=== PATIENT | male | born 1985 | race Caucasian/White ===

== ENCOUNTER → 2021-04-25 08:54 | Outpatient (BNVA) | payer MEDICAID, SELFPAY | PROVIDERS: Family Provider Family Medicine; PCP Physician Assistant; Visit Provider Specialist | DX: G40.909 Epilepsy, unspecified, not intractable, without status epilepticus (principal) | CPT/HCPCS: 99204 ==

== ENCOUNTER → 2021-09-26 08:05 | Outpatient (BNVA) | payer MEDICAID, SELFPAY | PROVIDERS: Family Provider Family Medicine; PCP Physician Assistant; Visit Provider Specialist | DX: G40.909 Epilepsy, unspecified, not intractable, without status epilepticus (principal) | CPT/HCPCS: 99212; 99213 ==

== ENCOUNTER 2023-01-14 14:18 | Inpatient (IN) | payer MEDICARE, MEDICAID, SELFPAY ==
[2023-01-14] VITALS (8 sets, daily range): BP systolic 139–175; BP diastolic 87–113; PULSE 93–111; RESP 16–20; TEMP 36.6–37; O2SAT 93–98; BMI 30.4
--- NOTE | 2023-01-14 15:19 | XRR_ITS ---
PROCEDURE INFORMATION: Exam: XR Chest Exam date and time: 01/14/2023 3:22 PM Age: 37 years old Clinical indication: Other: Vomiting blood; Additional info: Choking episode, vomiting blood TECHNIQUE: Imaging protocol: Radiologic exam of the chest. Views: 1 view. COMPARISON: No relevant prior studies available. FINDINGS: Limitations: Patient is rotated to the right. Lungs: Unremarkable. No consolidation. Pleural spaces: Unremarkable. No pleural effusion. No pneumothorax. Heart/Mediastinum: Unremarkable. No cardiomegaly. Bones/joints: Unremarkable. XR/XR chest 1V portable [id number] IMPRESSION: No acute findings.
--- NOTE | 2023-01-14 15:19 | W.ED.GENADLT ---
Documented by User: GRADY Gordillo 01/15/23 09:42 HPI - General Adult General: Chief complaint: General Medical Stated complaint: vomitting blood after eating Time Seen by Provider: 01/14/23 14:54 Source: family Mode of arrival: ambulatory Limitations: no limitations History of Present Illness: Patient is a 37-year-old male with a history of significant intellectual disability here with his parents for concerns of bloody emesis. According to the mother, patient was eating chicken strips earlier this morning when he gagged/got choked up on a piece and subsequently vomited. Mother states the contents of that episode of emesis was stomach acid/food however shortly after patient began having grossly bloody emesis. She states he has had approximately 7-8 episodes of bloody emesis since then. Patient is nonverbal and is not able to respond or localize to pain. 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 Onset (ago): hour(s) Treatments prior to arrival: none Review of Systems General: Reports: ROS unobtainable due to medical condition (pt is non-verbal) [facility] ED PFSH: Medical History Hypertension Seizure disorder Surgical History No significant past surgical history Social History Smoking and tobacco/nicotine status: never used tobacco/nicotine Caregiver/support person: Yes Household members: family Housing: House Marital status: Single Physical Exam Const: COMMON NORMALS: no acute distress, no limitations, alert and well nourished GENERAL APPEARANCE: cooperative ORIENTATION/CONSCIOUSNESS: Yes awake HENMT: COMMON NORMALS: normocephalic and atraumatic HEAD & SCALP: normal to inspection, normocephalic and atraumatic MOUTH: other (pt will not open mouth for visual inspection ) Eye: GENERAL EYE: appearance normal, both eyes and all related structures Neck/C-Spine: COMMON NORMALS: full ROM GENERAL: Yes normal visual inspection, No anterior neck swelling, No submandibular swelling and Yes other (no subcutaneous emphysema palpated) Chest: COMMONS NORMALS: normal inspection of the chest and normal palpation of entire chest wall Resp: COMMON NORMALS: normal respiratory effort and clear to auscultation bilaterally AUSCULTATION: clear to auscultation bilaterally Cardio: COMMON NORMALS: regular rate and regular rhythm RATE: regular rate RHYTHM: regular rhythm GI: COMMON NORMALS: Normal to inspection, nondistended, normoactive bowel sounds present, Soft to palpation and non-tender AUSCULTATION: Yes normoactive bowel sounds PALPATION: Yes Soft to palpation Neuro: SENSORIUM/ORIENTATION: Yes alert Course Consultations: Consultation #1: Dr. Lu-recommends CT chest/abdomen/pelvis imaging with IV and oral contrast, admit to hospitalist, and he will plan on EGD in the morning (later discussed about hesitation of PO contrast if we are going to do conscious sedation for CT scan and he was agreeable to IV contrast only) Consultation #2: Dr. Zhou-recommends fluids at 50cc/hr, IV Depakote, and will admit Vital Signs: Vital signs: Vital Signs Temperature 97.9 F 01/15/23 08:40 Pulse Rate 100 01/15/23 12:54 Respiratory Rate 18 01/15/23 12:54 Blood Pressure 134/78 01/15/23 12:54 Pulse Oximetry 90 01/15/23 12:54 Oxygen Delivery Me thod Room Air 01/15/23 12:00 Oxygen Flow Rate 2 01/14/23 22:27 MDM - General Adult Medical Decision Making Patient is a 37-year-old male here for complaints of gross hematemesis following an episode of vomiting after choking on food. He has had approximately 7-8 episodes of hematemesis. Spoke to general surgeon Dr. Lu and plan will be for CT scan of his chest/abdomen/pelvis and plan for scope in the morning. We are having to perform conscious sedation to complete this secondary to patient's severe intellectual disabilities. Dr. Meredith aware of patient and has assessed him as well. At time of shift change Dr. Meredith is currently over in CT with the patient as he was given propofol to get imaging completed. I also spoke to hospitalist Dr. Zhou who will admit patient. Please see Dr. Meredith's documentation for conscious sedation procedural note. He will place admit orders. Lab Data 01/15/23 05:09 01/15/23 05:09 Radiology Impressions Chest X-Ray 01/14/23 15:19 IMPRESSION: No acute findings. Chest/Abdomen/Pelvis CT 01/14/23 16:14 IMPRESSION: Fluid-filled mildly distended distal esophagus. Esophagram and possible upper endoscopy should be considered. IMPRESSION: No acute findings. COMMENTS: Consistent with the [employer]'s Incidental Findings Committee white paper (J Am Kentrell Radiol 2018): Any incidental renal lesion less than 1 cm or classified as too small to characterize, or any incidental cystic renal lesion characterized as simple-appearing, is likely benign. No follow-up imaging is recommended for these lesions per consensus recommendations based on imaging criteria. Laboratory Results WBC 19.71 10^3/uL (3.29-11.43) H 01/14/23 15:50 RBC 5.23 10^6/uL (3.85-5.65) 01/14/23 15:50 Hgb 15.20 g/dL (11.27-16.99) 01/14/23 15:50 Hct 47.5 % (37-53) 01/14/23 15:50 MCV 90.8 fl (82-101) 01/14/23 15:50 MCH 29.1 pg (27-33) 01/14/23 15:50 MCHC 32.0 g/dL (30-55) 01/14/23 15:50 RDW 13.4 % (12.1-15.1) 01/14/23 15:50 Plt Count 391 10^3/cmm (157-399) 01/14/23 15:50 MPV 10.1 fL (7.4-10.4) 01/14/23 15:50 Neut % (Auto) 88.0 % 01/14/23 15:50 Lymph % (Auto) 5.8 % 01/14/23 15:50 [place] % (Auto) 4.3 % 01/14/23 15:50 Eos % (Auto) 1.1 % 01/14/23 15:50 Baso % (Auto) 0.4 % 01/14/23 15:50 Neut # (Auto) 17.35 10^3/uL (1.8-7.7) H 01/14/23 15:50 Lymph # (Auto) 1.1 10^3/uL (0.8-4.8) 01/14/23 15:50 [place] # (Auto) 0.8 10^3/uL (0.2-0.9) 01/14/23 15:50 Eos # (Auto) 0.2 10^3/uL (0.0-0.8) 01/14/23 15:50 Baso # (Auto) 0.1 10^3/uL (0.0-0.1) 01/14/23 15:50 Nucleated RBC % (auto) 0 % 01/14/23 15:50 Nucleated RBCs # 0.0 /100WBC 01/14/23 15:50 Sodium 138 mmol/L (136-145) 01/14/23 15:50 Potassium 4.1 mmol/L (3.5-5.1) 01/14/23 15:50 Chloride 100 mmol/L (98-107) 01/14/23 15:50 Carbon Dioxide 29 mmol/L (22-29) 01/14/23 15:50 Anion Gap 13.1 (5-19) 01/14/23 15:50 BUN 17 mg/dL (6-20) 01/14/23 15:50 Creatinine 0.6 mg/dL (0.7-1.2) L 01/14/23 15:50 GFR Calculation 152.4 mL/min (90-130) H 01/14/23 15:50 Glucose 131 mg/dL (65-115) H 01/14/23 15:50 Calculated Osmolality 289 mOsm/kg (285-295) 01/14/23 15:50 Calcium 9.8 mg/dL (8.5-10.5) 01/14/23 15:50 Iron 42 ug/dL (59-158) L 01/14/23 15:50 TIBC 372 mcg/dl 01/14/23 15:50 % Saturation 11.2 % (20-50) L 01/14/23 15:50 Unsat Iron Binding 330 ug/dL (112-347) 01/14/23 15:50 Total Bilirubin 0.2 mg/dL (0.15-1.2) 01/14/23 15:50 AST 16 U/L (0-40) 01/14/23 15:50 ALT 21 U/L (0-41) 01/14/23 15:50 Alkaline Phosphatase 66 U/L (40-130) 01/14/23 15:50 Total Protein 7.7 g/dL (6.6-8.7) 01/14/23 15:50 Albumin 4.4 g/dL (3.5-5.2) 01/14/23 15:50 Globulin 3.3 g/dL (1.3-4.6) 01/14/23 15:50 Vitamin B12 635 pg/mL (232-1245) 01/14/23 15:50 TSH 0.52 uIU/mL (0.27-4.20) 01/14/23 15:50 Gastric Occult Blood Positive (Negative) H 01/14/23 15:18 All radiology interpretation(s) finalized by discharge Discharge Plan Discharge Patient Disposition: Admitted As Inpatient Admit Provider: Mauro Cruz Clinical Impression: Hematemesis of fresh blood Condition: Stable Discharge Diet: Full LIquid Discharge Activity: Resume usual activity Coding Level of Care Code ED Book Repairer for Chg Fwd Documented by User: Kendrick Meredith MD 01/26/23 07:24 HPI - General Adult General: Chief complaint: General Medical Stated complaint: vomitting blood after eating Time Seen by Provider: 01/14/23 14:54 [facility] ED PFSH: Medical History Hypertension Seizure disorder Surgical History No significant past surgical history Social History Smoking and tobacco/nicotine status: never used tobacco/nicotine Caregiver/support person: Yes Household members: family Housing: House Marital status: Single Course ED course: I did assume care of the 37-year-old male patient as the midlevel provider was going off duty. She states she is talked to Dr. Lynsey for admission of the patient for additional evaluation treatment and care. I did discuss with the parents the initial thoughts and plan to conscious sedate him to receive a CT soft tissue neck to rule out obstruction or esophageal perforation but after extensive discussion with the patient and the recent p.o. intake of food prior to come to the emergency department it was determined at that time that the risk of conscious sedation with additional aspiration and possible loss of the patient's airway was at this time and unacceptable risk given that he was going to be admitted and could be sedated in a much more controlled environment with the anesthesiologist and the physician performing the upper endoscopy with direct visualization. At present the patient is in no acute distress although if he deteriorates we will forego and reevaluate the risk of potential aspiration. At present the parents are in 100% agreement of waiting until in the morning when the patient gets the EGD and will need sedated at that time. At the time of transfer the patient maintained his airway without difficulty he had no additional episodes of hematic emesis and was moved to the medical floor without difficulty in preparation and anticipation for his planned procedure. Vital Signs: Vital signs: Vital Signs Temperature 97.9 F 01/15/23 08:40 Pulse Rate 100 01/15/23 12:54 Respiratory Rate 18 01/15/23 12:54 Blood Pressure 134/78 01/15/23 12:54 Pulse Oximetry 90 01/15/23 12:54 Oxygen Delivery Me thod Room Air 01/15/23 12:00 Oxygen Flow Rate 2 01/14/23 22:27 MDM - General Adult Differential Diagnosis Differential diagnosis include Sandra-Aj tear, Boerhaave's, retained food particle with esophageal obstruction Medical Records I reviewed the patient's medical records. Lab Data I reviewed the patient's lab results. 01/15/23 05:09 01/15/23 05:09 Radiology Impressions Chest X-Ray 01/14/23 15:19 IMPRESSION: No acute findings. Chest/Abdomen/Pelvis CT 01/14/23 16:14 IMPRESSION: Fluid-filled mildly distended distal esophagus. Esophagram and possible upper endoscopy should be considered. IMPRESSION: No acute findings. COMMENTS: Consistent with the [place] [employer]'s Incidental Findings Committee white paper (J Am Kentrell Radiol 2018): Any incidental renal lesion less than 1 cm or classified as too small to characterize, or any incidental cystic renal lesion characterized as simple-appearing, is likely benign. No follow-up imaging is recommended for these lesions per consensus recommendations based on imaging criteria. Laboratory Results WBC 19.71 10^3/uL (3.29-11.43) H 01/14/23 15:50 RBC 5.23 10^6/uL (3.85-5.65) 01/14/23 15:50 Hgb 15.20 g/dL (11.27-16.99) 01/14/23 15:50 Hct 47.5 % (37-53) 01/14/23 15:50 MCV 90.8 fl (82-101) 01/14/23 15:50 MCH 29.1 pg (27-33) 01/14/23 15:50 MCHC 32.0 g/dL (30-55) 01/14/23 15:50 RDW 13.4 % (12.1-15.1) 01/14/23 15:50 Plt Count 391 10^3/cmm (157-399) 01/14/23 15:50 MPV 10.1 fL (7.4-10.4) 01/14/23 15:50 Neut % (Auto) 88.0 % 01/14/23 15:50 Lymph % (Auto) 5.8 % 01/14/23 15:50 [place] % (Auto) 4.3 % 01/14/23 15:50 Eos % (Auto) 1.1 % 01/14/23 15:50 Baso % (Auto) 0.4 % 01/14/23 15:50 Neut # (Auto) 17.35 10^3/uL (1.8-7.7) H 01/14/23 15:50 Lymph # (Auto) 1.1 10^3/uL (0.8-4.8) 01/14/23 15:50 [place] # (Auto) 0.8 10^3/uL (0.2-0.9) 01/14/23 15:50 Eos # (Auto) 0.2 10^3/uL (0.0-0.8) 01/14/23 15:50 Baso # (Auto) 0.1 10^3/uL (0.0-0.1) 01/14/23 15:50 Nucleated RBC % (auto) 0 % 01/14/23 15:50 Nucleated RBCs # 0.0 /100WBC 01/14/23 15:50 Sodium 138 mmol/L (136-145) 01/14/23 15:50 Potassium 4.1 mmol/L (3.5-5.1) 01/14/23 15:50 Chloride 100 mmol/L (98-107) 01/14/23 15:50 Carbon Dioxide 29 mmol/L (22-29) 01/14/23 15:50 Anion Gap 13.1 (5-19) 01/14/23 15:50 BUN 17 mg/dL (6-20) 01/14/23 15:50 Creatinine 0.6 mg/dL (0.7-1.2) L 01/14/23 15:50 GFR Calculation 152.4 mL/min (90-130) H 01/14/23 15:50 Glucose 131 mg/dL (65-115) H 01/14/23 15:50 Calculated Osmolality 289 mOsm/kg (285-295) 01/14/23 15:50 Calcium 9.8 mg/dL (8.5-10.5) 01/14/23 15:50 Iron 42 ug/dL (59-158) L 01/14/23 15:50 TIBC 372 mcg/dl 01/14/23 15:50 % Saturation 11.2 % (20-50) L 01/14/23 15:50 Unsat Iron Binding 330 ug/dL (112-347) 01/14/23 15:50 Total Bilirubin 0.2 mg/dL (0.15-1.2) 01/14/23 15:50 AST 16 U/L (0-40) 01/14/23 15:50 ALT 21 U/L (0-41) 01/14/23 15:50 Alkaline Phosphatase 66 U/L (40-130) 01/14/23 15:50 Total Protein 7.7 g/dL (6.6-8.7) 01/14/23 15:50 Albumin 4.4 g/dL (3.5-5.2) 01/14/23 15:50 Globulin 3.3 g/dL (1.3-4.6) 01/14/23 15:50 Vitamin B12 635 pg/mL (232-1245) 01/14/23 15:50 TSH 0.52 uIU/mL (0.27-4.20) 01/14/23 15:50 Gastric Occult Blood Positive (Negative) H 01/14/23 15:18 Critical Care Time Critical Care Time: Critical Care Time: Yes Total Critical Care Time: 60 Attestation: This case had a high probability of a clinically significant, sudden, or life threatening deterioration of this patient's condition which required my full and direct attention, intervention and personal management. Discharge Plan Discharge Patient Disposition: Admitted As Inpatient Admit Provider: Mauro Cruz Clinical Impression: Hematemesis of fresh blood Condition: Stable Discharge Diet: Full LIquid Discharge Activity: Resume usual activity Coding Level of Care Code ED Book Repairer for Angie Colmenares
[2023-01-14 15:27] LABS: Gastricult Occult Blood Positive (Negative)
[2023-01-14 15:58] LABS: Basophils # 0.1 10^3/uL (0.0-0.1); Basophils % 0.4 %; Eosinophils # 0.2 10^3/uL (0.0-0.8); Eosinophils % 1.1 %; Hematocrit 47.5 % (37-53); Lymphocytes # 1.1 10^3/uL (0.8-4.8); Lymphocytes % 5.8 %; Mean Corpuscular Hemoglobin 29.1 pg (27-33); Mean Corpuscular Volume 90.8 fl (82-101); Mean Platelet Volume 10.1 fL (7.4-10.4); Monocytes # 0.8 10^3/uL (0.2-0.9); Monocytes % 4.3 %; Neutrophils # 17.35 10^3/uL (1.8-7.7); Nucleated Red Blood Cells % 0 %; Platelet Count 391 10^3/cmm (157-399); Red Blood Count 5.23 10^6/uL (3.85-5.65); Red Cell Distribution Width 13.4 % (12.1-15.1); White Blood Count 19.71 10^3/uL (3.29-11.43)
--- NOTE | 2023-01-14 16:14 | CTR_ITS ---
PROCEDURE INFORMATION: Exam: CT Chest With Contrast; Diagnostic Exam date and time: 01/14/2023 5:08 PM Age: 37 years old Clinical indication: Other: Choking, grossly bloody emisis; Additional info: Choking episode, grossly bloody emesis TECHNIQUE: Imaging protocol: Diagnostic computed tomography of the chest with contrast. Radiation optimization: All CT scans at this facility use at least one of these dose optimization techniques: automated exposure control; mA and/or kV adjustment per patient size (includes targeted exams where dose is matched to clinical indication); or iterative reconstruction. Contrast material: OMNI 350; Contrast volume: 100 ml; Contrast route: INTRAVENOUS (IV); REPORTING DATA: Count of CT and Cardiac NM exams in prior 12 months: This patient has received 0 known CTs and 0 known cardiac nuclear medicine studies in the 12 months prior to the current study. COMPARISON: CR XR chest 1V portable [id number] 01/14/2023 3:22 PM RADIATION DOSE METRICS: Total DLP (mGy-cm): 1357 FINDINGS: Lungs: Unremarkable. No consolidation. No masses. Pleural spaces: Unremarkable. No pneumothorax. No pleural effusion. Heart: Unremarkable. No cardiomegaly. No pericardial effusion. Mediastinal space: Fluid-filled mildly distended distal esophagus. Lymph nodes: Unremarkable. No enlarged lymph nodes. Vasculature: Unremarkable. No aortic aneurysm. Diaphragm: No hiatal hernia. Bones/joints: Unremarkable. No acute fracture. Soft tissues: Unremarkable. PROCEDURE INFORMATION: Exam: CT Abdomen And Pelvis With Contrast Exam date and time: 01/14/2023 5:08 PM Age: 37 years old Clinical indication: Other: Choking, grossly bloody emisis; Additional info: Choking episode, grossly bloody emesis TECHNIQUE: Imaging protocol: Computed tomography of the abdomen and pelvis with contrast. Radiation optimization: All CT scans at this facility use at least one of these dose optimization techniques: automated exposure control; mA and/or kV adjustment per patient size (includes targeted exams where dose is matched to clinical indication); or iterative reconstruction. Contrast material: OMNI 350; Contrast volume: 100 ml; Contrast route: INTRAVENOUS (IV); REPORTING DATA: Count of CT and Cardiac NM exams in prior 12 months: This patient has received 0 known CTs and 0 known cardiac nuclear medicine studies in the 12 months prior to the current study. COMPARISON: CR XR chest 1V portable [id number] 01/14/2023 3:22 PM RADIATION DOSE METRICS: Total DLP (mGy-cm): 1357 FINDINGS: Liver: Normal. No mass. Gallbladder and bile ducts: Calcified gallstones within the gallbladder. Pancreas: Normal. No ductal dilation. Spleen: Normal. No splenomegaly. Adrenal glands: Normal. No mass. Kidneys and ureters: Tiny cyst lower pole left kidney. Stomach and bowel: Unremarkable. No obstruction. No mucosal thickening. Appendix: No evidence of appendicitis. Intraperitoneal space: Unremarkable. No free air. No significant fluid collection. Vasculature: Unremarkable. No abdominal aortic aneurysm. Lymph nodes: Unremarkable. No enlarged lymph nodes. Urinary bladder: Unremarkable as visualized. Reproductive: Unremarkable as visualized. Bones/joints: Unremarkable. No acute fracture. Soft tissues: Unremarkable. CT/CT chest abdpel w/*[id number] IMPRESSION: Fluid-filled mildly distended distal esophagus. Esophagram and possible upper endoscopy should be considered. IMPRESSION: No acute findings. COMMENTS: Consistent with the [place] [employer]'s Incidental Findings Committee white paper (J Am Kentrell Radiol 2018): Any incidental renal lesion less than 1 cm or classified as too small to characterize, or any incidental cystic renal lesion characterized as simple-appearing, is likely benign. No follow-up imaging is recommended for these lesions per consensus recommendations based on imaging criteria.
[2023-01-14 16:17] LABS: Alanine Aminotransferase 21 U/L (0-41); Albumin Level 4.4 g/dL (3.5-5.2); Alkaline Phosphatase 66 U/L (40-130); Anion Gap 13.1 (5-19); Aspartate Amino Transferase 16 U/L (0-40); Blood Urea Nitrogen 17 mg/dL (6-20); Calcium 9.8 mg/dL (8.5-10.5); Carbon Dioxide 29 mmol/L (22-29); Chloride 100 mmol/L (98-107); Globulin 3.3 g/dL (1.3-4.6); Glomerular Filtration Rate 152.4 mL/min (90-130); Glucose 131 mg/dL (65-115); Osmolality Calculated 289 mOsm/kg (285-295); Potassium 4.1 mmol/L (3.5-5.1); Sodium 138 mmol/L (136-145); Total Bilirubin 0.2 mg/dL (0.15-1.2); Total Protein 7.7 g/dL (6.6-8.7)
[2023-01-14] MEDS: sodium chloride 0.9% 1,000 ML 999 ML IV (16:51)
--- NOTE | 2023-01-14 16:59 | P.HP_ITS ---
Providers/Chief Complaint Primary Care Provider: Shala Larsen Chief Complaint: vomitting blood after eating History of Present Illness Charanjit Mueller is a 37 year old male With past medical history of chromosomal disorder, seizure disorder who was brought into the ER today with multiple episodes of throwing up fresh blood. As per the mother who is at bedside patient choked up on his food during lunchtime after which he coughed and then threw up 1 time. First time when he threw up vomitus contained food particles but after that he has thrown up at least 7-8 times and each time he is throwing up fresh blood. She does not believe he is in pain. In the ER patient has been hemodynamically stable with mild tachycardia with heart rate up to 107. Review of Systems General: Reports: ROS unobtainable due to mental status Medications/Allergies Home Medications Medication Instructions Recorded Confirmed Last Taken Type albuterol sulfate 2.5 mg/0.5 mL 5 mg inhalation QID 02/06/21 01/14/23 01/13/23 History solution for nebulization budesonide 0.5 mg/2 mL suspension 0.5 mg inhalation DAILY 02/06/21 01/14/23 01/13/23 History for nebulization ergocalciferol (vitamin D2) 1,250 1,250 mcg PO DAILY 02/06/21 01/14/23 01/13/23 History mcg (50,000 unit) capsule (Vitamin D2) fenofibrate 160 mg tablet 160 mg PO DAILY 02/06/21 01/14/23 01/13/23 History irbesartan 150 mg tablet 150 mg PO DAILY 02/06/21 01/14/23 01/13/23 History loratadine 10 mg capsule 10 mg PO DAILY PRN Allergic 02/06/21 01/14/23 01/09/23 History Symptoms divalproex 125 mg tablet,delayed 125 mg PO DAILY 01/14/23 01/14/23 01/13/23 History release (Depakote) Allergies Allergy/AdvReac Type Severity Reaction Status Date / Time codeine AdvReac Severe Anaphylaxis Verified 09/26/21 08:09 promethazine AdvReac Severe Anaphylaxis Verified 09/26/21 08:09 PFSH Acute PFSH: Medical History (Updated 01/14/23 @ 17:46 by Mauro Cruz MD) Hypertension Seizure disorder Surgical History (Updated 01/14/23 @ 18:29 by Mauro Cruz MD) No significant past surgical history Social History (Updated 01/14/23 @ 18:29 by Mauro Cruz MD) Smoking and tobacco/nicotine status: never used tobacco/nicotine Caregiver/support person: Yes Household members: family Housing: House Marital status: Single Vitals/I&O/Wt Last Vital Signs Temp 97.8 F 01/14/23 14:18 Pulse 93 01/14/23 14:18 Resp 16 01/14/23 14:18 BP 175/88 01/14/23 14:18 Pulse Ox 98 01/14/23 14:18 O2 Del Method Room Air 01/14/23 14:18 Weight last 48 hrs Weight 85.729 kg Physical Exam 2 Narrative: General: No acute distress, HEENT: PERRLA, pupils bilaterally equal and reactive Chest: Normal vesicular breath sounds, no added sounds, equal good air entry bilaterally CVS: S1-S2 regular, no murmurs, no tachycardia, no gallops, no rubs Abdomen: Soft, nontender, no organomegaly, bowel sounds present Neuro: No focal deficits, no facial deformity, Data 01/14/23 15:50 01/14/23 15:50 A&P Assessment and plan (1) Hematemesis of fresh blood: Most likely in setting of aggressive vomiting which he had when he choked on his meals today. Check CT chest abdomen pelvis. Surgery consulted. Hemoglobin stable. Monitor hemoglobin every 8 hours. Protonix 40 mg twice daily. Zofran 4 mg IV every 8 hours scheduled NPO. Plan for EGD as per surgical team. (2) Upper GI bleed: Hemoglobin stable. Transfuse if hemodynamically unstable or hemoglobin drops below 7. (3) Hypertension: Goal blood pressure less than 140/90 mmHg. Hydralazine 5 mg every 4 hours as needed for systolic blood pressure more than 160 mmHg. (4) Seizure disorder: Currently NPO. Switch to Depakote 125 mg p.o. to IV. (5) Leukocytosis: Patient is on room air. Infectious cause less likely. Most likely acute inflammation in setting of hematemesis. Check urinalysis to rule out UTI. Hold off on IV antibiotics. Plan Goals of care discussion: Done with mother at bedside. She will be the DPOA. She is okay with chest compressions were done not sure about mechanical ventilation if needed. She states both her and herself have discussed and before and are still thinking. For now she would want him to be full code NPO. Protonix for PUD prophylaxis SCDs for DVT prophylaxis. Hold off on mechanical prophylaxis given ongoing GI bleed Attestations Medical Necessity Statement*: Requires admission for more than 2 midnights for evaluation and management of hematemesis of fresh blood Diagnoses Hematemesis of fresh blood K92.0 Upper GI bleed K92.2 Hypertension I10 Seizure disorder G40.909 Leukocytosis D72.829
[2023-01-14] MEDS: propofol 10 mg/mL SDV 20 mL 200 MG IVP (17:11)
[2023-01-14 17:56] LABS: Thyroid Stimulating Hormone 0.52 uIU/mL (0.27-4.20)
[2023-01-14] MEDS: iohexol 350 mg/mL 500 mL Btl (per mL) IV (18:01)
--- NOTE | 2023-01-14 18:10 | PC.NURSE ---
1700 - PATIENT ARRIVED TO CT SCANNER 96% ON 2L NC 173/92 112 PULSE 20 RESPIRATIONS 1706 - SECOND IV STARTED, 20G LEFT AC 158/108 98% 2L 107 PULSE 22 RESPIRATIONS 1711 - DR. JONES GIVES IVP PROPOFOL 1712 - RESPIRATORY BEGINS TO GIVE BREATHS VIA AMBUBAG 1715 - CT COMPLETE 137/86 108 PULSE 97% 2L 17 RESPIRATIONS 1717 - BACK TO ROOM 16 VIA STRETCHER WITH TRANSPORT MONITORS ON 1720 - 162/98 112 PULSE 24 RESPIRATIONS 99% 2L 1725 - 139/85 113 PULSE 100% 2L 20 RESPIRATIONS 1730 - 163/97 115 PULSE 99% 2L 19 RESPIRATIONS
[2023-01-14] MEDS: sodium chloride 0.9% 1,000 ML 100 ML IV (18:30)
[2023-01-14] MEDS: ondansetron 2 mg/ML SDV 2 mL 4 MG IVP (18:30)
[2023-01-14 20:55] LABS: Hematocrit 42.1 % (37-53)
--- NOTE | 2023-01-14 20:59 | PC.NURSE ---
Unable to complete suicide assessment due to patient being nonverbal, mother voices no concerns.
[2023-01-15] VITALS (14 sets, daily range): BP systolic 111–158; BP diastolic 72–89; PULSE 96–118; RESP 17–18; TEMP 36.3–36.9; O2SAT 90–99
[2023-01-15 00:08] LABS: Iron 42 ug/dL (59-158); Percent Saturation 11.2 % (20-50); Total Iron Binding Capacity 372 mcg/dl; Unsaturated Iron Binding 330 ug/dL (112-347)
[2023-01-15 00:25] LABS: Vitamin B12 635 pg/mL (232-1245)
[2023-01-15] MEDS: ondansetron 2 mg/ML SDV 2 mL 4 MG IVP ×2 (02:00→10:05)
[2023-01-15] MEDS: sodium chloride 0.9% 1,000 ML 100 ML IV (04:21)
--- NOTE | 2023-01-15 04:46 | PC.NURSE ---
patient started vomiting more clots this morning
[2023-01-15 05:54] LABS: Basophils % 0.2 %; Eosinophils # 0.1 10^3/uL (0.0-0.8); Eosinophils % 0.5 %; Hematocrit 40.3 % (37-53); Lymphocytes # 1.9 10^3/uL (0.8-4.8); Lymphocytes % 11.1 %; Mean Corpuscular Hemoglobin 29.3 pg (27-33); Mean Corpuscular Volume 91.4 fl (82-101); Mean Platelet Volume 10.8 fL (7.4-10.4); Monocytes # 1.5 10^3/uL (0.2-0.9); Monocytes % 8.6 %; Neutrophils # 13.75 10^3/uL (1.8-7.7); Neutrophils % 79.2 %; Nucleated Red Blood Cells % 0 %; Platelet Count 374 10^3/cmm (157-399); Red Blood Count 4.41 10^6/uL (3.85-5.65); Red Cell Distribution Width 13.7 % (12.1-15.1); White Blood Count 17.36 10^3/uL (3.29-11.43)
[2023-01-15 06:09] LABS: Estmated Average Glucose 114; Hemoglobin A1C 5.6 % (4.0-6.0)
[2023-01-15 06:18] LABS: Alanine Aminotransferase 16 U/L (0-41); Albumin Level 3.6 g/dL (3.5-5.2); Alkaline Phosphatase 56 U/L (40-130); Anion Gap 13.2 (5-19); Aspartate Amino Transferase 15 U/L (0-40); Blood Urea Nitrogen 12 mg/dL (6-20); Carbon Dioxide 26 mmol/L (22-29); Chloride 104 mmol/L (98-107); Glomerular Filtration Rate 152.4 mL/min (90-130); Glucose 119 mg/dL (65-115); Osmolality Calculated 289 mOsm/kg (285-295); Potassium 4.2 mmol/L (3.5-5.1); Sodium 139 mmol/L (136-145); Total Bilirubin 0.4 mg/dL (0.15-1.2); Total Protein 6.6 g/dL (6.6-8.7)
[2023-01-15 06:21] LABS: Cholesterol 122 mg/dL (0-200); HDL Cholesterol 47 mg/dL (60-100); LDL Cholesterol Calculated 63 mg/dL (50-129); Magnesium 1.6 mg/dL (1.7-2.3); Triglycerides 59 mg/dL (0-150); VLDL Cholestrol Calculation 12 mg/dL (0-30)
[2023-01-15 06:36] LABS: Folate Level 14.2 ng/mL (4.5-32.2)
--- NOTE | 2023-01-15 07:00 | PM.CONSULT ---
Providers/Reason For Consult Consulting Physician/Specialty*: Dr. Mina Lu, DO/General surgery Reason for Consult*: Hematemesis Attending Physician: Mauro Cruz MD Primary Care Provider: Shala Larsen History of Present Illness History of Present Illness Charanjit Mueller is a 37 year old male, with a chromosomal abnormality and intellectual disability, who presented to the hospital with sudden onset hematemesis. His mother and guardian is present but HPI and review of systems are limited secondary to patient's intellectual status. His mother reports that he has always had problems swallowing. He vomited once which consisted of contents of food and then multiple episodes of hematemesis. The mother does not believe that he is in any pain. She denies any diarrhea, hematochezia and/or melena. CT the abdomen pelvis in the ER showed fluid-filled distal esophagus. Review of Systems General: Reports: ROS unobtainable due to mental status Medications/Allergies Home Medications Medication Instructions Recorded Confirmed Last Taken Type albuterol sulfate 2.5 mg/0.5 mL 5 mg inhalation QID 02/06/21 01/14/23 01/13/23 History solution for nebulization budesonide 0.5 mg/2 mL suspension 0.5 mg inhalation DAILY 02/06/21 01/14/23 01/13/23 History for nebulization ergocalciferol (vitamin D2) 1,250 1,250 mcg PO DAILY 02/06/21 01/14/23 01/13/23 History mcg (50,000 unit) capsule (Vitamin D2) fenofibrate 160 mg tablet 160 mg PO DAILY 02/06/21 01/14/23 01/13/23 History irbesartan 150 mg tablet 150 mg PO DAILY 02/06/21 01/14/23 01/13/23 History loratadine 10 mg capsule 10 mg PO DAILY PRN Allergic 02/06/21 01/14/23 01/09/23 History Symptoms divalproex 125 mg tablet,delayed 125 mg PO DAILY 01/14/23 01/14/23 01/13/23 History release (Depakote) Allergies Allergy/AdvReac Type Severity Reaction Status Date / Time codeine AdvReac Severe Anaphylaxis Verified 09/26/21 08:09 promethazine AdvReac Severe Anaphylaxis Verified 09/26/21 08:09 Current Medications Generic Name Dose Route Start Last Admin Trade Name Freq PRN Reason Stop Dose Admin Sodium Chloride 1,000 mls @ 100 mls/hr 01/14/23 17:30 01/15/23 04:21 Sodium Chloride 0.9% IV 100 mls/hr .Q10H JAYE Administration Ondansetron HCl 4 mg 01/14/23 18:30 01/15/23 02:00 Ondansetron 2 Mg/Ml Sdv 2 Ml IVP 4 mg Q8H JAYE Administration PFSH Acute PFSH: Medical History Hypertension Seizure disorder Surgical History No significant past surgical history Social History Smoking and tobacco/nicotine status: never used tobacco/nicotine Caregiver/support person: Yes Household members: family Housing: House Marital status: Single Vitals/I&O/Wt Last Vital Signs Temp 98.3 F 01/15/23 06:58 Pulse 111 H 01/15/23 06:58 Resp 18 01/15/23 06:58 BP 148/89 01/15/23 06:58 Pulse Ox 95 01/15/23 06:58 O2 Del Method Room Air 01/15/23 06:58 O2 Flow Rate 2 01/14/23 22:27 01/14/23 01/15/23 01/15/23 22:59 06:59 14:59 Intake Total 1000 / 1000 985 / 1985 Balance 1000 / 1000 985 / 1985 Weight last 48 hrs Weight 189 lb Physical Exam Narrative: General : Patient is well developed , no acute distress Head : Normal cephalic, a-traumatic. Ears : Pinnae and external canal are normal. Hearing is normal. Eyes : PERRLA, Sclera and injection are normal. No conjunctival discharge. Nose : Mucous membranes are without erythema. Throat : buccal mucosa is normal, gums are without significant recession or hypertrophy. Lungs : Equal chest rise bilaterally, no use of accessory muscles, trachea is midline. Cor : Rate and rhythm are normal. Abdomen : Soft, ND, NT, no g/r/m Extremities : No edema, no cyanosis or clubbing, dorsalis pedis pulses are present bilaterally, non-tender to palpation of calves. Upper extremities are normal bilaterally. Back : non-tender to palpation, no CVA tenderness. Neuro : CN II - XII intact, Upper and lower extremities have equal and full strength Data 01/15/23 05:09 01/15/23 05:09 A&P Assessment and plan (1) Hematemesis of fresh blood: (2) Upper GI bleed: Plan EGD The risks and benefits of the procedure, including bleeding, infection, intestinal perforation requiring surgery, missed lesion were explained to the patient. The patient is understanding of the risks and wishes to proceed. Coding Level of Care Code 35532 Diagnoses Hematemesis of fresh blood K92.0 Upper GI bleed K92.2
--- NOTE | 2023-01-15 07:03 | ANES.PREANE2 ---
Pre-Anesthetic Assessment Height/Weight: Height 1.68 m Weight 85.729 kg Temp Pulse Resp BP Pulse Ox O2 Del Method O2 Flow Rate 98.3 F 111 H 18 148/89 95 Room Air 2 01/15/23 06:58 01/15/23 06:58 01/15/23 06:58 01/15/23 06:58 01/15/23 06:58 01/15/23 06:58 01/14/23 22:27 Operation Date: 01/15/23 07:15 Proposed Procedures p EGD(Not Applicable) - Mina Lu DO Familial anesthetic complications: None Was Beta Ancelmo taken within 24 hours: N/A Was Clonidine taken within 24 hours: N/A Last intake: > 8 hrs, last vomited blood at 3 am Social No alcohol and No tobacco Exam alert, clear to auscultation bilaterally and regular rate & rhythm Airway Mallampati: Class IV Dentition: full Comments: Comments: large tongue CV/HEM Hypertension Metabolic chromosomal abnormality with intellectual disability, causes seizures, large tongue, and dysphagia Neuropsych Seizure (not in 14 years) Anesthetic Plan ASA status: 3 Anesthesia: General Risk of > 500 ml blood loss (7ml/kg in children): No Medications/Allergies Home Medications Medication Instructions Recorded Confirmed Last Taken Type albuterol sulfate 2.5 mg/0.5 mL 5 mg inhalation QID 02/06/21 01/14/23 01/13/23 History solution for nebulization budesonide 0.5 mg/2 mL suspension 0.5 mg inhalation DAILY 02/06/21 01/14/23 01/13/23 History for nebulization ergocalciferol (vitamin D2) 1,250 1,250 mcg PO DAILY 02/06/21 01/14/23 01/13/23 History mcg (50,000 unit) capsule (Vitamin D2) fenofibrate 160 mg tablet 160 mg PO DAILY 02/06/21 01/14/23 01/13/23 History irbesartan 150 mg tablet 150 mg PO DAILY 02/06/21 01/14/23 01/13/23 History loratadine 10 mg capsule 10 mg PO DAILY PRN Allergic 02/06/21 01/14/23 01/09/23 History Symptoms divalproex 125 mg tablet,delayed 125 mg PO DAILY 01/14/23 01/14/23 01/13/23 History release (Depakote) Allergies Allergy/AdvReac Type Severity Reaction Status Date / Time codeine AdvReac Severe Anaphylaxis Verified 09/26/21 08:09 promethazine AdvReac Severe Anaphylaxis Verified 09/26/21 08:09 Current Medications Generic Name Dose Route Start Last Admin Trade Name Freq PRN Reason Stop Dose Admin Sodium Chloride 1,000 mls @ 100 mls/hr 01/14/23 17:30 01/15/23 04:21 Sodium Chloride 0.9% IV 100 mls/hr .Q10H JAYE Administration Ondansetron HCl 4 mg 01/14/23 18:30 01/15/23 02:00 Ondansetron 2 Mg/Ml Sdv 2 Ml IVP 4 mg Q8H JAYE Administration PFSH Anesthesia Medical History Hypertension Seizure disorder Surgical History No significant past surgical history Social History Smoking and tobacco/nicotine status: never used tobacco/nicotine Caregiver/support person: Yes Household members: family Housing: House Marital status: Single Data Anesthesia 01/15/23 05:09 01/15/23 05:09 Short CBC 01/14/23 01/14/23 01/15/23 Range/Units 15:50 20:40 05:09 WBC 19.71 H 17.36 H (3.29-11.43) 10^3/uL Hgb 15.20 13.80 12.90 (11.27-16.99) g/dL Hct 47.5 42.1 40.3 (37-53) % MCV 90.8 91.4 (82-101) fl Plt Count 391 374 (157-399) 10^3/cmm Neut % (Auto) 88.0 79.2 % Neut # (Auto) 17.35 H 13.75 H (1.8-7.7) 10^3/uL BMP 01/14/23 01/15/23 15:50 05:09 Sodium 138 139 Potassium 4.1 4.2 Chloride 100 104 Carbon Dioxide 29 26 BUN 17 12 Creatinine 0.6 L 0.6 L Glucose 131 H 119 H Calcium 9.8 9.0 Liver Function 01/14/23 01/15/23 Range/Units 15:50 05:09 Total Bilirubin 0.2 0.4 (0.15-1.2) mg/dL AST 16 15 (0-40) U/L ALT 21 16 (0-41) U/L Alkaline Phosphatase 66 56 (40-130) U/L Albumin 4.4 3.6 (3.5-5.2) g/dL Blood Bank 01/14/23 18:52 Blood Type O Positive Rho(D) Type Positive Antibody Screen Negative Cardiac Studies: No Data to Display
[2023-01-15] MEDS: sodium chloride 0.9% 1,000 ML 30 ML IV (07:30)
--- NOTE | 2023-01-15 08:40 | ANE.PACU2 ---
Inpatient post-anesthesia follow up: Airway intact: Yes Vital signs: Temperature 97.9 F Pulse Rate 99 Respiratory Rate 18 Blood Pressure 112/85 Pulse Oximetry 95 Oxygen Delivery Me thod Room Air Oxygen Flow Rate 2 Fraction of Inspir ed Oxygen Hydration adequate: Yes Nausea and vomiting: No Pain level: 1 Mental status: Baseline
[2023-01-15] MEDS: budesonide 0.5 mg/2 mL Neb INHALATION (08:56)
--- NOTE | 2023-01-15 09:35 | PC.CHAP ---
Pastoral Care Encounter/Spiritual Assessment Type of Contact [] Declined camp dining room attendant visit [] Patient/Family/Request visit [] Outpatient visit [] Follow-up visit [] Physician referral [] Code/Alert [x] Routine visit [] Staff referral [] Actively dying [] Patient sleeping [x] Family support [] [] Out of room [] Palliative care [] [] Receiving care in room [] Pre-surgical visit [] Trauma [] Long length of stay [] ICU visit [] Other: Relational/Emotional Strength [x] Patient feels connected with others/family/visitors/staff [] Distress [] Loneliness/isolation [] Abandonment Spirituality of Patient [x] Person of Kylie [] Attends Yarsanism of their Kylie [x] Believes in Prayer [] Reads Bible or Cheondoism materials [] There are Spiritual issues to be addressed [employer] Interventions [x] Prayer [x] Active listening [] Non-anxious presence [x] Spiritual/emotional support [] Crisis/trauma care [] Spiritual counseling [] Bereavement support [] Provided bereavement packet [] Provided Bible/devotional materials [] Provided toy/stuffed animal, coloring book to patient or family member [] Provided Communion [] Anointing/[place] [] Salvation [x] Completed spiritual assessment [] Other: Impact on Illness or Injury [] Angry [] Fearful [] Anxious [] Often cries [] Exhaustion [] Unable to work [] Unable to attend congregation [] Unable to walk/stand [] Unable to read [] Unable to drive [] Unable to eat/drink [] Unable to sleep [] Unable to be with family [] Patient intubated [] Other: Summary Time spent with patient 5 min
[2023-01-15] MEDS: pantoprazole 40 mg SDV IVP (09:36)
--- NOTE | 2023-01-15 11:30 | PM.DCS ---
Discharge Providers Date of Admission: 01/14/23 16:58 Date of Discharge: January 15, 2023 Attending Provider at Admission: Mauro Cruz MD Attending Provider at Discharge: Mauro Cruz MD Consults: Surgery: Dr. Lu Primary Care Provider: Shala Larsen Diagnoses at Discharge Discharge Diagnosis (1) Hematemesis of fresh blood: Status: Acute (2) Upper GI bleed: Status: Acute Reason for Visit Reason for Visit: vomitting blood after eating Hospital Course Hospital Course Charanjit Mueller is a 37 year old male With past medical history of chromosomal disorder, seizure disorder who was brought into the ER today with multiple episodes of throwing up fresh blood.? As per the mother who is at bedside patient choked up on his food during lunchtime after which he coughed and then threw up 1 time.? First time when he threw up vomitus contained food particles but after that he has thrown up at least 7-8 times and each time he is throwing up fresh blood.? She does not believe he is in pain. Patient was admitted to the hospital further evaluation and management of hematemesis of bright red blood. Surgery was consulted. He underwent CT abdomen pelvis on admission which is consistent with fluid-filled distal esophagus. Patient during hospitalization did not have any further episodes. He underwent EGD on 01/15 which showed large esophageal food impaction with resulting esophageal ulceration, bolus was cleared. Patient is being discharged back home with caregiver on full liquid diet for next 3 to 5 days and then advance gradually to a regular diet. He is to follow-up with surgical team within next 2 weeks. Discharge plan was discussed in detail with patient family and caregiver at bedside and all the questions were answered. Physical Exam Narrative: General: No acute distress, HEENT: PERRLA, pupils bilaterally equal and reactive Chest: Normal vesicular breath sounds, no added sounds, equal good air entry bilaterally CVS: S1-S2 regular, no murmurs, no tachycardia, no gallops, no rubs Abdomen: Soft, nontender, no organomegaly, bowel sounds present Neuro: No focal deficits, no facial deformity, Discharge Data Studies Completed and Pending Completed Studies During Hospitalization Category Date Time Status CT chest abdomen pelvis [CT chest abdpel w/*[id number] Cat Scan 01/14/23 16:14 Completed ] Stat XR chest 1V portable [id number] Stat Exams 01/14/23 15:19 Completed Pending at discharge Category Date Time Status MAG [Magnesium] AM LABS Lab 01/16/23 04:00 Ordered MAG [Magnesium] AM LABS Lab 01/17/23 04:00 Ordered Urinalysis Routine Lab 01/14/23 20:09 Uncollected Radiology Impressions Chest X-Ray 01/14/23 15:19 IMPRESSION: No acute findings. Chest/Abdomen/Pelvis CT 01/14/23 16:14 IMPRESSION: Fluid-filled mildly distended distal esophagus. Esophagram and possible upper endoscopy should be considered. IMPRESSION: No acute findings. COMMENTS: Consistent with the [employer]'s Incidental Findings Committee white paper (J Am Kentrell Radiol 2018): Any incidental renal lesion less than 1 cm or classified as too small to characterize, or any incidental cystic renal lesion characterized as simple-appearing, is likely benign. No follow-up imaging is recommended for these lesions per consensus recommendations based on imaging criteria. Laboratory Results WBC 17.36 10^3/uL (3.29-11.43) H 01/15/23 05:09 RBC 4.41 10^6/uL (3.85-5.65) 01/15/23 05:09 Hgb 12.90 g/dL (11.27-16.99) 01/15/23 05:09 Hct 40.3 % (37-53) 01/15/23 05:09 MCV 91.4 fl (82-101) 01/15/23 05:09 MCH 29.3 pg (27-33) 01/15/23 05:09 MCHC 32.0 g/dL (30-55) 01/15/23 05:09 RDW 13.7 % (12.1-15.1) 01/15/23 05:09 Plt Count 374 10^3/cmm (157-399) 01/15/23 05:09 MPV 10.8 fL (7.4-10.4) H 01/15/23 05:09 Neut % (Auto) 79.2 % 01/15/23 05:09 Lymph % (Auto) 11.1 % 01/15/23 05:09 [place] % (Auto) 8.6 % 01/15/23 05:09 Eos % (Auto) 0.5 % 01/15/23 05:09 Baso % (Auto) 0.2 % 01/15/23 05:09 Neut # (Auto) 13.75 10^3/uL (1.8-7.7) H 01/15/23 05:09 Lymph # (Auto) 1.9 10^3/uL (0.8-4.8) 01/15/23 05:09 [place] # (Auto) 1.5 10^3/uL (0.2-0.9) H 01/15/23 05:09 Eos # (Auto) 0.1 10^3/uL (0.0-0.8) 01/15/23 05:09 Baso # (Auto) 0.0 10^3/uL (0.0-0.1) 01/15/23 05:09 Nucleated RBC % (auto) 0 % 01/15/23 05:09 Nucleated RBCs # 0.0 /100WBC 01/15/23 05:09 Sodium 139 mmol/L (136-145) 01/15/23 05:09 Potassium 4.2 mmol/L (3.5-5.1) 01/15/23 05:09 Chloride 104 mmol/L (98-107) 01/15/23 05:09 Carbon Dioxide 26 mmol/L (22-29) 01/15/23 05:09 Anion Gap 13.2 (5-19) 01/15/23 05:09 BUN 12 mg/dL (6-20) 01/15/23 05:09 Creatinine 0.6 mg/dL (0.7-1.2) L 01/15/23 05:09 GFR Calculation 152.4 mL/min (90-130) H 01/15/23 05:09 Glucose 119 mg/dL (65-115) H 01/15/23 05:09 Estimat Average Glucose 114 01/15/23 05:09 Hemoglobin A1c 5.6 % (4.0-6.0) 01/15/23 05:09 Calculated Osmolality 289 mOsm/kg (285-295) 01/15/23 05:09 Calcium 9.0 mg/dL (8.5-10.5) 01/15/23 05:09 Magnesium 1.6 mg/dL (1.7-2.3) L 01/15/23 05:09 Iron 42 ug/dL (59-158) L 01/14/23 15:50 TIBC 372 mcg/dl 01/14/23 15:50 % Saturation 11.2 % (20-50) L 01/14/23 15:50 Unsat Iron Binding 330 ug/dL (112-347) 01/14/23 15:50 Total Bilirubin 0.4 mg/dL (0.15-1.2) 01/15/23 05:09 AST 15 U/L (0-40) 01/15/23 05:09 ALT 16 U/L (0-41) 01/15/23 05:09 Alkaline Phosphatase 56 U/L (40-130) 01/15/23 05:09 Total Protein 6.6 g/dL (6.6-8.7) 01/15/23 05:09 Albumin 3.6 g/dL (3.5-5.2) 01/15/23 05:09 Globulin 3.0 g/dL (1.3-4.6) 01/15/23 05:09 Triglycerides 59 mg/dL (0-150) 01/15/23 05:09 Cholesterol 122 mg/dL (0-200) 01/15/23 05:09 LDL Cholesterol, Calc 63 mg/dL (50-129) 01/15/23 05:09 Total VLDL Cholesterol 12 mg/dL (0-30) 01/15/23 05:09 HDL Cholesterol 47 mg/dL (60-100) L 01/15/23 05:09 Cholesterol/HDL Ratio 2.60 mg/dL (1.0-5.00) 01/15/23 05:09 Vitamin B12 635 pg/mL (232-1245) 01/14/23 15:50 Folate 14.2 ng/mL (4.5-32.2) 01/15/23 05:09 TSH 0.52 uIU/mL (0.27-4.20) 01/14/23 15:50 Gastric Occult Blood Positive (Negative) H 01/14/23 15:18 Blood Type O Positive 01/14/23 18:52 Rho(D) Type Positive 01/14/23 18:52 Antibody Screen Negative 01/14/23 18:52 Vitals Last Vital Signs Temp 97.9 F 01/15/23 08:40 Pulse 99 01/15/23 08:56 Resp 18 01/15/23 08:56 BP 112/85 01/15/23 08:40 Pulse Ox 95 01/15/23 08:56 O2 Del Method Room Air 01/15/23 08:56 O2 Flow Rate 2 01/14/23 22:27 Discharge Plan Discharge Patient Disposition: Home Condition: Stable Prescriptions: New Protonix 40 mg tablet,delayed release (DR/EC) 40 mg PO DAILY Qty: 14 0RF Continued fenofibrate 160 mg tablet 160 mg PO DAILY irbesartan 150 mg tablet 150 mg PO DAILY ergocalciferol (vitamin D2) [Vitamin D2] 1,250 mcg (50,000 unit) capsule 1,250 mcg PO DAILY albuterol sulfate 2.5 mg/0.5 mL solution for nebulization 5 mg inhalation QID budesonide 0.5 mg/2 mL suspension for nebulization 0.5 mg inhalation DAILY loratadine 10 mg capsule 10 mg PO DAILY PRN (Reason: Allergic Symptoms) Depakote 125 mg tablet,delayed release (DR/EC) 125 mg PO DAILY Discharge Orders: Discharge Order (Routine); Ordered 01/15/23 Ordered By: Mauro Cruz Referrals: Mina Lu DO [Physician] - 7-10 days (Dr. Lu's office will call you with your appointment. We have notified your physician's clinic of the need for a follow-up appointment to be scheduled. If you have not heard from them within the next 2 business days, please call them directly. You may also reach out to our manager union at [phone] and she can assist you.) Shala Larsen PA-C [Primary Care Provider] - 01/22/23 11:30 am Discharge Diet: Full LIquid Discharge Activity: Resume usual activity Patient Instructions: Full Liquid Diet (DC), Upper Endoscopy (DC), GI Discharge Instructions, Opioid Safety Activity Restrictions/Additional Instructions: Continue with full liquid diet for next 3 to 5 days and advance gradually to a regular diet within the next 1 week. Please follow-up with a primary care provider on set appointment for repeat CBC. Please follow-up with surgical team within next 2 weeks. Discharge Attestations Time Spent in Discharge Care*: greater than 30 min Specific Discharge Activities: educating patient, educating and/or supporting family/caregiver, discussing with pcp/other providers, discussing with counseling case manager/social workers/dc planners, documenting/other paperwork and evaluating patient/reviewing data Quality Metrics Clinical Quality Measures [ No reported AMI, CVA or VTE this stay] Coding Level of Care Code 11620 Total time (in minutes) for Discharge: 50 Diagnoses Hematemesis of fresh blood K92.0 Upper GI bleed K92.2
--- NOTE | 2023-01-15 12:53 | PC.NURSE ---
Discharge instructions provided to parents of patient at this time. NO questions or concerns voiced. All belongings with pt.
== END 2023-01-15 13:02 | disposition home or self-care (01) | DRG 382 ==
LOC: ER 16:48 → MEDSURG 18:58
PROVIDERS: Surgery; Admitting Provider Student in an Organized Health Care Education/Training Program; Emergency Provider Physician Assistant; PCP Physician Assistant; Visit Provider Student in an Organized Health Care Education/Training Program
PROC: 0DJ08ZZ Inspection of Upper Intestinal Tract, Via Natural or Artificial Opening Endoscopic (ICD-10-PCS; CPT 43235; principal; 2023-01-15 07:15)
DX: K22.11 Ulcer of esophagus with bleeding (principal); T18.128A Food in esophagus causing other injury, initial encounter; W44.F3XA Food entering into or through a natural orifice, initial encounter; F78.A9 Other genetic related intellectual disability; G40.909 Epilepsy, unspecified, not intractable, without status epilepticus; I10 Essential (primary) hypertension; R13.10 Dysphagia, unspecified
CPT/HCPCS: 36415; 43247; 71045; 71260; 74177; 80053; 80061; 82271; 82607; 82746; 83036; 83540; 83550; 83735; 84443; 85014; 85018; 85025; 86850; 86900; 94640; 94664; 96361; 96374; 99285; C9113; J0330; J1100; J2371; J2405; J2704; J3010; J3490; J7030; J7626; Q9967

== ENCOUNTER → 2023-01-29 07:34 | Outpatient (BNVA) | payer MEDICARE, MEDICAID, SELFPAY | PROVIDERS: PCP Physician Assistant; Visit Provider Surgery | DX: Z09 Encounter for follow-up examination after completed treatment for conditions other than malignant neoplasm (principal); R13.10 Dysphagia, unspecified; K21.9 Gastro-esophageal reflux disease without esophagitis | CPT/HCPCS: 99204; 99213 ==

== ENCOUNTER 2023-02-27 07:45 | Day surgery (SDC) | payer MEDICARE, MEDICAID, SELFPAY ==
[2023-02-27 08:35] VITALS: BP 179/113; PULSE 88; RESP 16; TEMP 36; O2SAT 97
[2023-02-27] MEDS: sodium chloride 0.9% 1,000 ML 30 ML IV (08:53)
--- NOTE | 2023-02-27 08:54 | ANES.PREANE2 ---
Pre-Anesthetic Assessment Height/Weight: Height 1.65 m Temp Pulse Resp BP Pulse Ox O2 Del Method 96.8 F L 88 16 179/113 97 Room Air 02/27/23 08:35 02/27/23 08:35 02/27/23 08:35 02/27/23 08:35 02/27/23 08:35 02/27/23 08:35 Preop Diagnosis: Dysphagia/GERD Operation Date: 02/27/23 09:30 Proposed Procedures p EGD Dilation W/ Balloon 96409,R13.10,K21.9(Not Applicable) - Mina Lu DO Familial anesthetic complications: None Was Beta Ancelmo taken within 24 hours: N/A Was Clonidine taken within 24 hours: N/A Last intake: Intake Last Liquid Date 02/26/23 Last Liquid Time 19:00 Last Solid Date 02/26/23 Last Solid Time 19:00 Social No alcohol and No tobacco Exam alert, clear to auscultation bilaterally and regular rate & rhythm Airway Submandibular: within normal limits Cervical ROM: Other (unable to assess) Mallampati: Class III Dentition: full History/ROS No significant history except as noted and No significant complaints Pulmonary Asthma CV/HEM Hypertension None reported Hepatic None reported GI Gastroesophageal Reflux Disease and Peptic Ulcer Disease Metabolic None reported Musc/skel Rheumatoid Arthritis Neuropsych Anxiety and Seizure (As a kid. No seizure in last 20 years) Mental disability Anesthetic Plan ASA status: 3 Anesthesia: Anesthesia Evaluation, General and MAC Risk of > 500 ml blood loss (7ml/kg in children): No Medications/Allergies Home Medications Medication Instructions Recorded Confirmed Last Taken Type albuterol sulfate 2.5 mg/0.5 mL 5 mg inhalation QID 02/06/21 02/27/23 02/27/23 History solution for nebulization budesonide 0.5 mg/2 mL suspension 0.5 mg inhalation DAILY 02/06/21 02/27/23 02/27/23 History for nebulization ergocalciferol (vitamin D2) 1,250 1,250 mcg PO DAILY 02/06/21 02/27/23 02/26/23 History mcg (50,000 unit) capsule (Vitamin D2) fenofibrate 160 mg tablet 160 mg PO DAILY 02/06/21 02/27/23 02/26/23 History irbesartan 150 mg tablet 150 mg PO DAILY 02/06/21 02/27/2302/26/23 History loratadine 10 mg capsule 10 mg PO DAILY PRN Allergic 02/06/21 02/25/23 01/09/23 History Symptoms divalproex 125 mg tablet,delayed 125 mg PO DAILY 01/14/23 02/27/23 02/26/23 History release (Depakote) pantoprazole 40 mg tablet,delayed 40 mg PO BID 6 weeks #84 tabs 01/29/23 02/27/23 02/26/23 Rx release (Protonix) Allergies Allergy/AdvReac Type Severity Reaction Status Date / Time codeine AdvReac Severe Anaphylaxis Verified 01/29/23 08:24 promethazine AdvReac Severe Anaphylaxis Verified 01/29/23 08:24 Current Medications Generic Name Dose Route Start Last Admin Trade Name Freq PRN Reason Stop Dose Admin Sodium Chloride 1,000 mls @ 30 mls/hr 02/27/23 08:30 02/27/23 08:53 Sodium Chloride 0.9% IV 02/28/23 08:29 30 mls/hr .Q24H JAYE Administration PFSH Anesthesia Medical History (Updated 01/29/23 @ 09:12 by Mina Lu DO) Seizure disorder Hypertension Surgical History (Updated 01/29/23 @ 09:12 by Mina Lu DO) Hx of hernia repair as a baby No significant past surgical history Social History Smoking and tobacco/nicotine status: never used tobacco/nicotine Caregiver/support person: Yes Household members: family Housing: House Marital status: Single Data Anesthesia Cardiac Studies: No Data to Display
--- NOTE | 2023-02-27 09:05 | W.PM.OPSUD ---
Surgery/Procedure H&P Update DATE OF PROCEDURE: February 27, 2023 DATE H&P PERFORMED: 01/29/23 H&P UPDATE INFORMATION: I have reviewed H&P completed within last 30 days, I have examined patient prior to procedure and No changes to prior documentation PREOP DIAGNOSIS: Dysphagia/GERD PLANNED PROCEDURE: Operation Date: 02/27/23 09:30 Proposed Procedures p EGD Dilation W/ Balloon 16882,R13.10,K21.9(Not Applicable) - Mina Lu DO
[2023-02-27 09:25] VITALS: BP 93/61; PULSE 79; RESP 14; TEMP 36.1; O2SAT 90
[2023-02-27 09:30] VITALS: BP 89/61; PULSE 78; RESP 14; O2SAT 98
[2023-02-27 09:41] VITALS: BP 132/80; PULSE 89; RESP 18; O2SAT 96
--- NOTE | 2023-02-27 14:08 | ANE.PACU2 ---
Inpatient post-anesthesia follow up: Airway intact: Yes Vital signs: Temperature 97.0 F Pulse Rate 89 Respiratory Rate 18 Blood Pressure 132/80 Pulse Oximetry 96 Oxygen Delivery Me thod Room Air Oxygen Flow Rate 3 Fraction of Inspir ed Oxygen Hydration adequate: Yes Nausea and vomiting: No Pain level: 1 Mental status: Baseline
== END 2023-02-27 09:55 | disposition home or self-care (01) ==
PROVIDERS: PCP Physician Assistant; Visit Provider Surgery
DX: R13.10 Dysphagia, unspecified (principal); K21.9 Gastro-esophageal reflux disease without esophagitis; I10 Essential (primary) hypertension; K29.50 Unspecified chronic gastritis without bleeding; B96.81 Helicobacter pylori [H. pylori] as the cause of diseases classified elsewhere; Z87.11 Personal history of peptic ulcer disease; M06.9 Rheumatoid arthritis, unspecified
CPT/HCPCS: 43239; 43249; 88305; 88342; J2704; J7030

== ENCOUNTER → 2023-03-13 12:53 | Outpatient (BNVA) | payer MEDICARE, MEDICAID, SELFPAY | PROVIDERS: PCP Physician Assistant; Visit Provider Surgery | DX: Z09 Encounter for follow-up examination after completed treatment for conditions other than malignant neoplasm (principal); K21.9 Gastro-esophageal reflux disease without esophagitis; A04.8 Other specified bacterial intestinal infections | CPT/HCPCS: 99213 ==

== ENCOUNTER → 2024-06-11 08:46 | Outpatient (BNVA) | payer MEDICARE, MEDICAID, SELFPAY | PROVIDERS: PCP Physician Assistant; Visit Provider Specialist | DX: G40.909 Epilepsy, unspecified, not intractable, without status epilepticus (principal); Q99.9 Chromosomal abnormality, unspecified; F80.89 Other developmental disorders of speech and language; F84.9 Pervasive developmental disorder, unspecified | CPT/HCPCS: 99214 ==

== ENCOUNTER 2024-06-30 11:43 | Emergency (ER) | payer MEDICARE, MEDICAID, SELFPAY ==
[2024-06-30] VITALS (7 sets, daily range): BP systolic 146–182; BP diastolic 88–119; PULSE 93–107; RESP 16; TEMP 37.6; O2SAT 93–99; BMI 32.4
--- NOTE | 2024-06-30 11:45 | US_ITS ---
WS: [id number] TESTICULAR ULTRASOUND HISTORY: testicle swelling COMPARISON: None available. TECHNIQUE: Real-time and color Doppler imaging utilized to perform a testicular ultrasound. Right testicle: 3.3 cm x 2.3 cm x 2.4 cm. Normal size and echogenicity. No mass or torsion. Normal color Doppler is present throughout. Systolic and diastolic velocities are both present. Moderate size hydrocele with a few low-level echoes surround the testicle. Right epididymis: Enlarged hypervascular epididymis. Very heterogeneous epididymis. Left testicle: 3.8 cm x 1.6 cm x 2.2 cm. Normal size and echogenicity. No mass or torsion. Normal color Doppler is present throughout. Systolic and diastolic velocities are both present. No significant hydrocele. Left epididymis: Markedly hypervascular epididymis. US/US scrotum [id number] IMPRESSION: 1. Severe bilateral acute epididymitis. 2. No testicular mass or torsion. 3. Moderate RIGHT hydrocele.
[2024-06-30 13:22] LABS: Basophils # 0.1 10^3/uL (0.0-0.1); Basophils % 0.4 %; Eosinophils # 0.4 10^3/uL (0.0-0.8); Eosinophils % 2.8 %; Hematocrit 40.4 % (37-53); Lymphocytes # 1.8 10^3/uL (0.8-4.8); Lymphocytes % 12.7 %; Mean Corpuscular HGB Conc 31.9 g/dL (30-55); Mean Corpuscular Hemoglobin 28.1 pg (27-33); Mean Platelet Volume 9.5 fL (7.4-10.4); Monocytes # 1.4 10^3/uL (0.2-0.9); Monocytes % 9.8 %; Neutrophils # 10.23 10^3/uL (1.8-7.7); Neutrophils % 73.9 %; Nucleated Red Blood Cells % 0 %; Platelet Count 418 10^3/cmm (157-399); Red Blood Count 4.59 10^6/uL (3.85-5.65); Red Cell Distribution Width 14.5 % (12.1-15.1); White Blood Count 13.85 10^3/uL (3.29-11.43)
[2024-06-30 13:44] LABS: Alanine Aminotransferase 22 U/L (0-41); Albumin Level 3.8 g/dL (3.5-5.2); Alkaline Phosphatase 67 U/L (40-130); Aspartate Amino Transferase 12 U/L (0-40); Blood Urea Nitrogen 16 mg/dL (6-20); Calcium 9.5 mg/dL (8.5-10.5); Carbon Dioxide 30 mmol/L (22-29); Chloride 99 mmol/L (98-107); Creatinine Clr Calc Pharmacy 147.7159; Globulin 3.6 g/dL (1.3-4.6); Glomerular Filtration Rate 126.9 mL/min (90-130); Glucose 114 mg/dL (65-115); Lipase 34 U/L (13-60); Osmolality Calculated 290 mOsm/kg (285-295); Sodium 139 mmol/L (136-145); Total Bilirubin 0.3 mg/dL (0.15-1.2); Total Protein 7.4 g/dL (6.6-8.7)
--- NOTE | 2024-06-30 13:45 | W.ED.MALEGU ---
HPI - Male Genitourinary General: Chief complaint: Urogenital-Male Stated complaint: testicles swollen Time Seen by Provider: 06/30/24 12:36 History of Present Illness: 38-year-old male with significant cognitive disabilities presents to the emergency room with his parents with swelling of the right testicle. Patient undescended testicle and has a poorly developed left testicle. He has not communicated any complaints of pain or burning with urination he wears a depends but will often urinate in the toilet. No reported fever sweats or chills no hematuria. Associated symptoms: Deny dysuria Related Data Home Medications ?Medication ?Instructions ?Recorded ?Confirmed albuterol sulfate 2.5 mg/0.5 mL 5 mg inhalation QID 02/06/21 06/30/24 solution for nebulization budesonide 0.5 mg/2 mL suspension 0.5 mg inhalation DAILY 02/06/21 06/30/24 for nebulization ergocalciferol (vitamin D2) 1,250 1,250 mcg PO DAILY 02/06/21 06/30/24 mcg (50,000 unit) capsule (Vitamin D2) fenofibrate 160 mg tablet 160 mg PO DAILY 02/06/21 06/30/24 irbesartan 150 mg tablet 150 mg PO DAILY 02/06/21 06/30/24 loratadine 10 mg capsule 10 mg PO DAILY PRN Allergic 02/06/21 06/30/24 Symptoms Previous Rx's ?Medication ?Instructions ?Recorded divalproex 125 mg tablet,delayed See Rx Instructions .Route 06/11/24 release .COMPLEX #90 tabs ciprofloxacin HCl 500 mg tablet 500 mg PO BID #14 tabs 06/30/24 (Cipro) Allergies Allergy/AdvReac Type Severity Reaction Status Date / Time codeine AdvReac Severe Anaphylaxis Verified 06/11/24 08:53 promethazine AdvReac Severe Anaphylaxis Verified 06/11/24 08:53 Review of Systems Const: Denies: fever(s) or chills Card: Denies: chest pain Resp: Denies: dyspnea GI: Denies: abdominal pain : Denies: dysuria, urinary frequency or urinary urgency Musc: Denies: neck pain or back pain Skin/Breast: Denies: rash PFSH ED PFSH: Medical History Seizure disorder Hypertension Surgical History Hx of hernia repair as a baby No significant past surgical history Social History Smoking and tobacco/nicotine status: never used tobacco/nicotine Caregiver/support person: Yes Household members: family Housing: House Marital status: Single Physical Exam Const: COMMON NORMALS: no acute distress GENERAL APPEARANCE: cooperative and comfortable ORIENTATION/CONSCIOUSNESS: Yes awake HENMT: COMMON NORMALS: normocephalic, atraumatic and hearing grossly normal bilaterally HEAD & SCALP: normocephalic and atraumatic Resp: COMMON NORMALS: normal respiratory effort, No retractions, No use of accessory muscles and clear to auscultation bilaterally AUSCULTATION: clear to auscultation bilaterally Cardio: COMMON NORMALS: regular rate, regular rhythm and No murmurs present (Cardio) RATE: regular rate RHYTHM: regular rhythm GI: COMMON NORMALS: Soft to palpation and No hepatosplenomegaly present AUSCULTATION: Yes normoactive bowel sounds PALPATION: Yes Soft to palpation, No Tenderness to palpation present (GI), No Guarding due to palpation present (GI) and Yes No hepatosplenomegaly present : OTHER: Examination of testicles significant swelling of the right testicle exquisite tenderness. Left testicle is underdeveloped. Nonswollen not inflamed epididymis exquisitely tender on the right. Extremity: COMMON NORMALS: normal to inspection, capillary refill normal, no clubbing, cyanosis or edema, no calf tenderness and no pedal edema Skin: COMMON NORMALS: no rashes or lesions noted GENERAL SKIN EXAM: no rashes or lesions noted Course Vital Signs: Vital signs: Vital Signs Temperature 99.7 F H 06/30/24 12:10 Pulse Rate 98 06/30/24 16:28 Respiratory Rate 16 06/30/24 12:10 Blood Pressure 146/88 06/30/24 16:28 Pulse Oximetry 95 06/30/24 16:28 Oxygen Delivery Me thod Room Air 06/30/24 12:10 MDM - Male Medical Decision Making Acute epididymitis. Urine shows white blood cells as well will start on Cipro ice anti-inflammatories follow-up with primary care if not improving if worsens or to develops persistent fever return to the emergency room Medical Records I reviewed the patient's medical records. Lab Data I reviewed the patient's lab results. 06/30/24 13:17 06/30/24 13:17 Radiology Impressions Scrotum Ultrasound 06/30/24 11:45 IMPRESSION: 1. Severe bilateral acute epididymitis. 2. No testicular mass or torsion. 3. Moderate RIGHT hydrocele. Laboratory Results WBC 13.85 10^3/uL (3.29-11.43) H 06/30/24 13:17 RBC 4.59 10^6/uL (3.85-5.65) 06/30/24 13:17 Hgb 12.90 g/dL (11.27-16.99) 06/30/24 13:17 Hct 40.4 % (37-53) 06/30/24 13:17 MCV 88.0 fl (82-101) 06/30/24 13:17 MCH 28.1 pg (27-33) 06/30/24 13:17 MCHC 31.9 g/dL (30-55) 06/30/24 13:17 RDW 14.5 % (12.1-15.1) 06/30/24 13:17 Plt Count 418 10^3/cmm (157-399) H 06/30/24 13:17 MPV 9.5 fL (7.4-10.4) 06/30/24 13:17 Neut % (Auto) 73.9 % 06/30/24 13:17 Lymph % (Auto) 12.7 % 06/30/24 13:17 [place] % (Auto) 9.8 % 06/30/24 13:17 Eos % (Auto) 2.8 % 06/30/24 13:17 Baso % (Auto) 0.4 % 06/30/24 13:17 Neut # (Auto) 10.23 10^3/uL (1.8-7.7) H 06/30/24 13:17 Lymph # (Auto) 1.8 10^3/uL (0.8-4.8) 06/30/24 13:17 [place] # (Auto) 1.4 10^3/uL (0.2-0.9) H 06/30/24 13:17 Eos # (Auto) 0.4 10^3/uL (0.0-0.8) 06/30/24 13:17 Baso # (Auto) 0.1 10^3/uL (0.0-0.1) 06/30/24 13:17 Nucleated RBC % (auto) 0 % 06/30/24 13:17 Nucleated RBCs # 0.0 /100WBC 06/30/24 13:17 Sodium 139 mmol/L (136-145) 06/30/24 13:17 Potassium 4.0 mmol/L (3.5-5.1) 06/30/24 13:17 Chloride 99 mmol/L (98-107) 06/30/24 13:17 Carbon Dioxide 30 mmol/L (22-29) H 06/30/24 13:17 Anion Gap 14.0 (5-19) 06/30/24 13:17 BUN 16 mg/dL (6-20) 06/30/24 13:17 Creatinine 0.7 mg/dL (0.7-1.2) 06/30/24 13:17 GFR Calculation 126.9 mL/min (90-130) 06/30/24 13:17 Glucose 114 mg/dL (65-115) 06/30/24 13:17 Calculated Osmolality 290 mOsm/kg (285-295) 06/30/24 13:17 Calcium 9.5 mg/dL (8.5-10.5) 06/30/24 13:17 Total Bilirubin 0.3 mg/dL (0.15-1.2) 06/30/24 13:17 AST 12 U/L (0-40) 06/30/24 13:17 ALT 22 U/L (0-41) 06/30/24 13:17 Alkaline Phosphatase 67 U/L (40-130) 06/30/24 13:17 Total Protein 7.4 g/dL (6.6-8.7) 06/30/24 13:17 Albumin 3.8 g/dL (3.5-5.2) 06/30/24 13:17 Globulin 3.6 g/dL (1.3-4.6) 06/30/24 13:17 Lipase 34 U/L (13-60) 06/30/24 13:17 Urine Color Yellow (Yellow) 06/30/24 15:15 Urine Appearance Slightly cloudy (CLEAR) 06/30/24 15:15 Urine pH 5 (5-7) 06/30/24 15:15 Ur Specific [place] 1.015 (1.005-1.030) 06/30/24 15:15 Urine Protein 1+ (Negative) A 06/30/24 15:15 Urine Glucose (UA) Norm (Normal) 06/30/24 15:15 Urine Ketones Negative (Negative) 06/30/24 15:15 Urine Blood 3+ (Negative) A 06/30/24 15:15 Urine Nitrate Positive (Negative) A 06/30/24 15:15 Urine Bilirubin Neg (Negative) 06/30/24 15:15 Urine Urobilinogen Norm mg/dL (Negative) 06/30/24 15:15 Ur Leukocyte Esterase Trace (Negative) A 06/30/24 15:15 Urine RBC 10-15 /hpf (0-2) H 06/30/24 15:15 Urine WBC 21-50 /hpf (0-5) H 06/30/24 15:15 Ur Squamous Epith Cells 0-5 /hpf (0-5) 06/30/24 15:15 Amorphous Sediment Not Reportable 06/30/24 15:15 Urine Bacteria 4+ /hpf (NONE) H 06/30/24 15:15 Hyaline Casts 0.81 /lpf 06/30/24 15:15 All radiology interpretation(s) finalized by discharge Discharge Plan Discharge Patient Disposition: Home Clinical Impression: Epididymitis, Cystitis Condition: Stable Prescriptions: New ciprofloxacin HCl [Cipro] 500 mg tablet 500 mg PO BID Qty: 14 0RF No Action fenofibrate 160 mg tablet 160 mg PO DAILY irbesartan 150 mg tablet 150 mg PO DAILY ergocalciferol (vitamin D2) [Vitamin D2] 1,250 mcg (50,000 unit) capsule 1,250 mcg PO DAILY albuterol sulfate 2.5 mg/0.5 mL solution for nebulization 5 mg inhalation QID budesonide 0.5 mg/2 mL suspension for nebulization 0.5 mg inhalation DAILY loratadine 10 mg capsule 10 mg PO DAILY PRN (Reason: Allergic Symptoms) divalproex 125 mg tablet,delayed release (DR/EC) See Rx Instructions .ROUTE .COMPLEX Qty: 90 3RF Dose Instruction: TAKE ONE TABLET BY MOUTH DAILY WILL NEED AN APPOINTMENT FOR ANY FUTURE REFILLS Rx Instructions: TAKE ONE TABLET BY MOUTH DAILY WILL NEED AN APPOINTMENT FOR ANY FUTURE REFILLS Discharge Orders: Discharge ED (Routine); Ordered 06/30/24 Ordered By: Demetrio Grullon Referrals: Bartolo Flores FNP [Primary Care Provider] - Discharge Diet: Usual diet Discharge Activity: Resume usual activity Patient Instructions: Epididymitis (ED), Urinary Tract Infection in Men (ED), Opioid Safety, Pain Management Activity Restrictions/Additional Instructions: Thank you for choosing [facility] for your healthcare needs today. It is very important that you follow up as instructed or that you return to the Emergency Department should you have concerns or if your condition changes or worsens in any way. You were seen in the emergency room with complaint of swelling in the testicle. Ultrasound shows an epididymitis this is an inflammation of the tube that goes from the testicle out towards the prostate. There is also signs of cystitis bladder infection in your urine. Recommend you start on oral antibiotics 1 tablet twice a day for 7 days. In addition to this you can use ibuprofen or Aleve for discomfort ice to the testicles can be helpful as well. Print Language: [place] Coding Level of Care Code ED Volumetric Weigher for Angie Colmenares
[2024-06-30 15:31] LABS: Bacteria Urine 4+ /hpf; Hyaline Casts Urine 0.81 /lpf; Squamous Epithelial Cell Urine 0-5 /hpf (0-5); WBC Urine 21-50 /hpf (0-5)
[2024-06-30 15:58] LABS: Glucose Urine UA Norm (Normal); Ketones Urine Negative (Negative); Protein Urine 1+ (Negative); Specific Gravity, Urine 1.015 (1.005-1.030); Urine Appearance Slightly Cloudy (CLEAR); Urine Color Yellow (Yellow); pH Urine 5 (5-7)
[2024-06-30 15:59] LABS: Add Urine Microscopic? YES; Bilirubin Urine Neg (Negative); Blood Urine 3+ (Negative); Leukocyte Esterase Urine Trace (Negative); Nitrate Urine Positive (Negative); UA Slide Review UA Slide Review Perf; Urobilinogen Urine Norm (Negative)
[2024-06-30 16:01] LABS: Add Urine Culture? Yes
== END 2024-06-30 16:29 | disposition home or self-care (01) ==
PROVIDERS: Emergency Medicine; Emergency Provider Family Medicine; PCP Nurse Practitioner Family
DX: N45.1 Epididymitis (principal); N30.90 Cystitis, unspecified without hematuria; I10 Essential (primary) hypertension
CPT/HCPCS: 36415; 76870; 80053; 81001; 83690; 85025; 87077; 87086; 87186; 99284